=== PATIENT | female | born 1970 | race Caucasian/White ===

== ENCOUNTER → 2017-04-19 | Outpatient (CLI) | payer OTHER ==
[~2017-04-19] MED LIST: ALBU18HF INH; ASCO500T29 PO; BECL8.7A5 INH; CYAN5000 PO; ESCI10TA PO; FLUT9.9S NS; LORA10TA3 PO; MONT10TA9 PO; OMEP20TA62 PO; testosterone cream TD
== END | disposition home or self-care (01) ==
LOC: STAR 15:04
PROVIDERS: ATTEND Surgery
DX: Z02.9 Encounter for administrative examinations, unspecified (principal)

== ENCOUNTER 2017-04-25 07:07 | Inpatient (IN) | payer OTHER ==
[~2017-04-25] VITALS: Ht 162.6 cm; Wt 81.4 kg
[~2017-04-25 07:07] MED LIST changes: +ASCO-90 PO; -ASCO500T29 PO; -BECL8.7A5 INH; +BECL8.7A7 INH; +BUPIVACAINE/PF-EPI 0.5% 1:200K ONE; -CYAN5000 PO; +CYAN50002 PO
[2017-04-25] MEDS ORDERED: SCOPOLAMINE PATCH, 1.5MG PATCH.TD72 TD ONE ×2 (07:32→08:00)
[2017-04-25] MEDS ORDERED: LIDOCAINE 1%, 2ML ONE (07:32)
[2017-04-25] MEDS ORDERED: LACTATED RINGERS 1,000 ML IV SCH (07:39)
[2017-04-25 07:40] VITALS: BP 118/79
[2017-04-25] MEDS ORDERED: LIDOCAINE 1%, 2ML SQ PRN (08:00)
[2017-04-25] MEDS ORDERED: FENTANYL PF 250 MCG/5ML ONE (08:16)
[2017-04-25] MEDS ORDERED: MIDAZOLAM 1 MG/ML, 2ML ONE (08:16)
[2017-04-25] MEDS ORDERED: MEPERIDINE/PF 25MG/0.5ML IVPush PRN (09:00)
[2017-04-25] MEDS ORDERED: METOPROLOL 1 MG/ML, 5ML IV PRN (09:00)
[2017-04-25] MEDS ORDERED: EPHEDRINE 50 MG/ML, 1ML IVPush PRN (09:00)
[2017-04-25] MEDS ORDERED: ACETAMINOPHEN 325 MG TABLET PO PRN (09:00)
[2017-04-25] MEDS ORDERED: hydrALAzine 20 MG/ML, 1ML IV PRN (09:00)
[2017-04-25] MEDS ORDERED: FENTANYL PF 100 MCG/2ML IV PRN (09:00)
[2017-04-25] MEDS ORDERED: LABETALOL 5MG/ML, 20ML IV PRN (09:00)
[2017-04-25] MEDS ORDERED: HYDROmorphone 1 MG/ML, 1ML IV PRN (09:00)
[2017-04-25] MEDS ORDERED: ONDANSETRON 2MG/ML, 2ML IVPush PRN (09:00)
[2017-04-25] MEDS ORDERED: OXYcodone 5 MG/5 ML ORAL.SOL UDC PO PRN (09:00)
[2017-04-25] MEDS ORDERED: ALBUTEROL SULFATE 2.5 MG/3 ML NPPB PRN ×2 (09:00→13:30)
[2017-04-25] MEDS ORDERED: ACETAMINOPHEN 650 MG/20.3 ML UDC ONE (11:30)
[2017-04-25] MEDS ORDERED: OXYcodone 5 MG/5 ML ORAL.SOL UDC ONE (11:30)
[2017-04-25] MEDS ORDERED: ACETAMINOPHEN 325 MG/10.15 ML UDC ONE (11:30)
[2017-04-25] MEDS ORDERED: ONDANSETRON 2MG/ML, 2ML ONE ×2 (11:40→16:30)
[2017-04-25] MEDS ORDERED: FENTANYL PF 100 MCG/2ML ONE (11:40)
[2017-04-25 12:40] VITALS: BP 102/67
[2017-04-25] MEDS: LACTATED RINGERS 1,000 ML IV SCH (16:03)
[2017-04-25] MEDS ORDERED: GLYCOPYRROLATE 0.2MG/1ML ONE (16:30)
[2017-04-25] MEDS ORDERED: ROCURONIUM 10 MG/ML ONE (16:30)
[2017-04-25] MEDS ORDERED: PROPOFOL 10 MG/ML, 50ML ONE (16:30)
[2017-04-25] MEDS ORDERED: NEOSTIGMINE 1 MG/ML, 10ML ONE (16:30)
[2017-04-25] MEDS ORDERED: DEXAMETHASONE 4 MG/ML, 1ML ONE (16:30)
[2017-04-25] MEDS ORDERED: PROPOFOL 10 MG/ML, 20ML ONE (16:30)
[2017-04-25] MEDS ORDERED: CEFOTETAN 2 GM ONE (16:30)
[2017-04-25 17:37] VITALS: BP 113/68
[2017-04-25] MEDS: HYDROmorphone 2MG TABLET PO PRN (18:39)
[2017-04-25] MEDS: ONDANSETRON 2MG/ML, 2ML IVPush PRN (18:50)
[2017-04-25 20:09] VITALS: BP 113/70
[2017-04-25] MEDS: FLUTICASONE NASAL SPRAY 16GM NAS SCH (21:00)
[2017-04-25] MEDS: MONTELUKAST 10 MG TABLET PO SCH (21:04)
[2017-04-25] MEDS: CITALOPRAM 20 MG TABLET PO SCH (21:04)
[2017-04-25] MEDS: HYDROmorphone 2 MG/ML, 1ML IV PRN (21:04)
[2017-04-25 23:38] VITALS: BP 95/59
[2017-04-26] MEDS: ONDANSETRON 2MG/ML, 2ML IVPush PRN ×2 (02:13→17:49)
[2017-04-26] MEDS: HYDROmorphone 2 MG/ML, 1ML IV PRN ×2 (02:13→09:05)
[2017-04-26] MEDS: LACTATED RINGERS 1,000 ML IV SCH ×3 (04:25→17:23)
[2017-04-26 04:30] VITALS: BP 95/52
[2017-04-26] MEDS: HYDROmorphone 2MG TABLET PO PRN ×4 (06:17→20:55)
[2017-04-26 07:12] VITALS: BP 98/57
[2017-04-26] MEDS ORDERED: OMEPRAZOLE 20 MG CAPSULE.DR PO SCH (07:30)
[2017-04-26] MEDS ORDERED: FLUTICASONE FUROATE 200MCG/INH INH SCH (09:00)
[2017-04-26] MEDS ORDERED: LORATADINE 10 MG TABLET PO SCH (09:00)
[2017-04-26 13:05] VITALS: BP 100/52
[2017-04-26] MEDS ORDERED: DIAZEPAM 5 MG TABLET PO PRN (15:00)
[2017-04-26 15:47] LABS: HEMATOCRIT 39.6 % (34.6-47.8); HEMOGLOBIN 13.1 g/dL (11.7-16.4)
[2017-04-26 19:02] VITALS: BP 122/72
[2017-04-26] MEDS: MONTELUKAST 10 MG TABLET PO SCH (21:00)
[2017-04-26] MEDS: CITALOPRAM 20 MG TABLET PO SCH (21:00)
[2017-04-26] MEDS: FLUTICASONE NASAL SPRAY 16GM NAS SCH (21:00)
[2017-04-26] MEDS ORDERED: FENTANYL PF 250 MCG/5ML ONE (21:25)
[2017-04-26] MEDS ORDERED: BUPIVACAINE/PF 0.5% ONE (21:49)
[2017-04-26] MEDS ORDERED: EPINEPHRINE 1 MG/ML, 1ML ONE (21:49)
[2017-04-26] MEDS ORDERED: GLYCOPYRROLATE 0.2MG/1ML ONE (21:58)
[2017-04-26] MEDS ORDERED: PROPOFOL 10 MG/ML, 20ML ONE ×2 (21:58)
[2017-04-26] MEDS ORDERED: SUCCINYLCHOLINE 20 MG/ML, 10ML ONE (21:58)
[2017-04-26] MEDS ORDERED: ONDANSETRON 2MG/ML, 2ML ONE (21:58)
[2017-04-26] MEDS ORDERED: PHENYLEPHRINE 10 MG/ML ONE (21:58)
[2017-04-26] MEDS ORDERED: METOCLOPRAMIDE 5 MG/ML, 2ML ONE (21:58)
[2017-04-26] MEDS ORDERED: CEFOTETAN 2 GM ONE (21:58)
[2017-04-26] MEDS ORDERED: MORPHINE SULFATE 4 MG/ML, 1ML ONE (23:35)
[2017-04-27] MEDS ORDERED: METOCLOPRAMIDE 5 MG/ML, 2ML IV PRN
[2017-04-27] MEDS ORDERED: ALBUTEROL/IPRATROPIUM 2.5MG/0.5MG, 3 ML NPPB PRN
[2017-04-27] MEDS ORDERED: hydrALAzine 20 MG/ML, 1ML IV PRN
[2017-04-27] MEDS ORDERED: LABETALOL 5MG/ML, 20ML IV PRN
[2017-04-27] MEDS ORDERED: ONDANSETRON 2MG/ML, 2ML IVPush PRN
[2017-04-27] MEDS ORDERED: MIDAZOLAM 1 MG/ML, 2ML IV PRN
[2017-04-27] MEDS ORDERED: HYDROmorphone 1 MG/ML, 1ML IV PRN
[2017-04-27] MEDS ORDERED: ACETAMINOPHEN 325 MG TABLET PO PRN
[2017-04-27] MEDS ORDERED: PROMETHAZINE 25 MG/ML, 1ML IV PRN
[2017-04-27] MEDS ORDERED: MEPERIDINE/PF 25MG/0.5ML IVPush PRN
[2017-04-27] MEDS: FENTANYL PF 100 MCG/2ML IV PRN ×4 (00:50→01:28)
[2017-04-27] MEDS: HYDROmorphone PCA 30 MG/30 ML IV PRN ×2 (00:51→09:48)
[2017-04-27 01:44] VITALS: BP 110/72
[2017-04-27] MEDS ORDERED: SODIUM CHLORIDE 0.9%, 500ML IVBOLUS PRN (02:00)
[2017-04-27] MEDS ORDERED: ONDANSETRON 2MG/ML, 2ML IV PRN (02:30)
[2017-04-27] MEDS ORDERED: DIAZEPAM 5 MG/ML, 2ML IVPush PRN (02:30)
[2017-04-27] MEDS: PIPERACILLIN-TAZO-DEXTROSE,ISO 100 ML IV SCH ×3 (03:56→19:59)
[2017-04-27] MEDS: SODIUM CHLORIDE 0.9% 1,000 ML IV SCH ×4 (03:57→17:34)
[2017-04-27 05:26] LABS: HEMATOCRIT 43.5 % (34.6-47.8); HEMOGLOBIN 14.4 g/dL (11.7-16.4); WHITE BLOOD COUNT 15.8 x10^3/uL (3.4-10)
[2017-04-27 07:00] VITALS: BP 122/79
[2017-04-27 09:25] LABS: BLOOD UREA NITROGEN 8 mg/dL (7-18)
[2017-04-27 09:28] LABS: ASPARTATE AMINO TRANSFERASE 506 U/L (15-37)
[2017-04-27] MEDS: FAMOTIDINE 20 MG/2 ML IVPush SCH ×2 (09:40→22:13)
[2017-04-27] MEDS: FLUTICASONE FUROATE 200MCG/INH INH SCH (09:40)
[2017-04-27] MEDS: DIAZEPAM 5 MG/ML, 10ML VIAL IVPush PRN ×2 (09:40→15:49)
[2017-04-27 14:00] VITALS: BP 127/76
[2017-04-27] MEDS ORDERED: ALBUTEROL SULFATE 2.5 MG/3 ML ONE (17:11)
[2017-04-27] MEDS: ALBUTEROL SULFATE 2.5 MG/3 ML NPPB SCH ×2 (17:16→20:21)
[2017-04-27 21:22] VITALS: BP 118/68
[2017-04-28] MEDS: SODIUM CHLORIDE 0.9% 1,000 ML IV SCH ×3 (00:59→15:33)
[2017-04-28] MEDS: PIPERACILLIN-TAZO-DEXTROSE,ISO 100 ML IV SCH ×3 (03:28→21:06)
[2017-04-28 03:29] VITALS: BP 109/70
[2017-04-28] MEDS: ALBUTEROL SULFATE 2.5 MG/3 ML NPPB SCH ×3 (07:15→21:22)
[2017-04-28 08:23] VITALS: BP 103/64
[2017-04-28] MEDS: FAMOTIDINE 20 MG/2 ML IVPush SCH ×2 (08:28→21:06)
[2017-04-28] MEDS: FLUTICASONE FUROATE 200MCG/INH INH SCH ×2 (08:29→08:38)
[2017-04-28 09:04] LABS: HEMATOCRIT 33.4 % (34.6-47.8); WHITE BLOOD COUNT 11.7 x10^3/uL (3.4-10)
[2017-04-28 09:15] LABS: ASPARTATE AMINO TRANSFERASE 151 U/L (15-37); BLOOD UREA NITROGEN 7 mg/dL (7-18)
[2017-04-28] MEDS: DIAZEPAM 5 MG/ML, 10ML VIAL IVPush PRN (10:02)
[2017-04-28 12:00] VITALS: BP 103/67
[2017-04-28] MEDS ORDERED: SODIUM CHLORIDE 0.9% 1,000 ML IV SCH (16:30)
[2017-04-28 20:57] VITALS: BP 108/69
[2017-04-28] MEDS ORDERED: CITALOPRAM 20 MG TABLET PO SCH (21:00)
[2017-04-28] MEDS: MONTELUKAST 10 MG TABLET PO SCH (21:06)
[2017-04-28] MEDS: HYDROmorphone PCA 30 MG/30 ML IV PRN (22:05)
[2017-04-29] MEDS ORDERED: BECL8.7A7 INH (00:09)
[2017-04-29] MEDS: DIAZEPAM 5 MG/ML, 10ML VIAL IVPush PRN ×2 (02:26→22:08)
[2017-04-29 02:31] VITALS: BP 104/66
[2017-04-29] MEDS: PIPERACILLIN-TAZO-DEXTROSE,ISO 100 ML IV SCH ×3 (04:09→19:50)
[2017-04-29 09:30] LABS: HEMATOCRIT 36.7 % (34.6-47.8); HEMOGLOBIN 12.3 g/dL (11.7-16.4); WHITE BLOOD COUNT 13.7 x10^3/uL (3.4-10)
[2017-04-29 09:41] LABS: ASPARTATE AMINO TRANSFERASE 67 U/L (15-37); BLOOD UREA NITROGEN 5 mg/dL (7-18)
[2017-04-29] MEDS: FAMOTIDINE 20 MG/2 ML IVPush SCH ×2 (09:57→19:50)
[2017-04-29] MEDS: LORATADINE 10 MG TABLET PO SCH (09:57)
[2017-04-29] MEDS: ALBUTEROL SULFATE 2.5 MG/3 ML NPPB SCH ×3 (10:00→20:31)
[2017-04-29] MEDS: QVAR 80MCG HOMEINH SCH ×2 (10:42→20:18)
[2017-04-29] MEDS: POTASSIUM CHLORIDE 40 MEQ in D5%-0.2% NACL 1,000 ML IV SCH (12:57)
[2017-04-29] MEDS: METOCLOPRAMIDE 10MG TABLET PO SCH ×3 (13:15→20:17)
[2017-04-29] MEDS: ENOXAPARIN 40 MG/0.4 ML SQ SCH (13:15)
[2017-04-29 14:43] VITALS: BP 110/71
[2017-04-29] MEDS ORDERED: SODIUM CHLORIDE 0.9% 1,000 ML IV SCH (16:30)
[2017-04-29 19:00] VITALS: BP 93/60
[2017-04-29] MEDS ORDERED: SODIUM CHLORIDE 0.9%, 500ML IVBOLUS PRN (19:30)
[2017-04-29] MEDS: MONTELUKAST 10 MG TABLET PO SCH (19:51)
[2017-04-29] MEDS: LEXAPRO 10MG HOMEMEDPO SCH (20:17)
[2017-04-29] MEDS: HYDROmorphone 1 MG/ML, 1ML IV PRN (20:28)
[2017-04-29] MEDS ORDERED: LEXAPRO 10MG HOMEMEDPO SCH (21:00)
[2017-04-29 22:36] VITALS: BP 114/81
[2017-04-30] MEDS: ONDANSETRON 2MG/ML, 2ML IV PRN ×2 (00:45→15:56)
[2017-04-30] MEDS: HYDROmorphone 1 MG/ML, 1ML IV PRN ×2 (00:45→05:04)
[2017-04-30] MEDS: METOCLOPRAMIDE 10MG TABLET PO SCH ×2 (00:46→05:03)
[2017-04-30] MEDS: PIPERACILLIN-TAZO-DEXTROSE,ISO 100 ML IV SCH ×3 (03:29→20:10)
[2017-04-30 04:56] LABS: HEMATOCRIT 38.3 % (34.6-47.8); HEMOGLOBIN 12.7 g/dL (11.7-16.4)
[2017-04-30 05:07] LABS: ASPARTATE AMINO TRANSFERASE 43 U/L (15-37); BLOOD UREA NITROGEN 5 mg/dL (7-18)
[2017-04-30 05:08] VITALS: BP 112/71
[2017-04-30] MEDS ORDERED: FUROSEMIDE 20 MG/2 ML IV ONE (08:00)
[2017-04-30 08:01] VITALS: BP 111/74
[2017-04-30] MEDS: POTASSIUM CHLORIDE 40 MEQ in D5%-0.2% NACL 1,000 ML IV SCH (09:30)
[2017-04-30] MEDS: LORATADINE 10 MG TABLET PO SCH (09:36)
[2017-04-30] MEDS: FAMOTIDINE 20 MG/2 ML IVPush SCH ×2 (09:37→20:34)
[2017-04-30] MEDS: KETOROLAC 30 MG/1 ML IVPush PRN ×3 (09:37→21:52)
[2017-04-30] MEDS: ALBUTEROL SULFATE 2.5 MG/3 ML NPPB SCH ×4 (09:50→20:51)
[2017-04-30 09:54] LABS: BLOOD UREA NITROGEN 4 mg/dL (7-18)
[2017-04-30 09:57] LABS: ASPARTATE AMINO TRANSFERASE 45 U/L (15-37)
[2017-04-30] MEDS: QVAR 80MCG HOMEINH SCH ×2 (10:54→20:36)
[2017-04-30] MEDS: METOCLOPRAMIDE 5 MG/ML, 2ML IV SCH ×2 (12:21→17:34)
[2017-04-30] MEDS: ENOXAPARIN 40 MG/0.4 ML SQ SCH (12:22)
[2017-04-30 13:35] VITALS: BP 117/75
[2017-04-30 20:19] VITALS: BP 123/76
[2017-04-30] MEDS: LEXAPRO 10MG HOMEMEDPO SCH (20:34)
[2017-04-30] MEDS: MONTELUKAST 10 MG TABLET PO SCH (20:34)
[2017-05-01] MEDS: METOCLOPRAMIDE 5 MG/ML, 2ML IV SCH ×5 (00:34→17:03)
[2017-05-01] MEDS: POTASSIUM CHLORIDE 40 MEQ in D5%-0.2% NACL 1,000 ML IV SCH (04:28)
[2017-05-01] MEDS: PIPERACILLIN-TAZO-DEXTROSE,ISO 100 ML IV SCH ×3 (04:29→20:13)
[2017-05-01] MEDS: KETOROLAC 30 MG/1 ML IVPush PRN ×3 (04:31→18:01)
[2017-05-01 04:38] VITALS: BP 115/74
[2017-05-01 05:52] LABS: HEMATOCRIT 33.1 % (34.6-47.8); HEMOGLOBIN 11.1 g/dL (11.7-16.4); WHITE BLOOD COUNT 11.4 x10^3/uL (3.4-10)
[2017-05-01 06:14] LABS: ASPARTATE AMINO TRANSFERASE 41 U/L (15-37); BLOOD UREA NITROGEN 4 mg/dL (7-18)
[2017-05-01 06:52] VITALS: BP 117/79
[2017-05-01] MEDS: ALBUTEROL SULFATE 2.5 MG/3 ML NPPB SCH ×3 (08:40→20:48)
[2017-05-01] MEDS: LORATADINE 10 MG TABLET PO SCH (08:43)
[2017-05-01] MEDS: FAMOTIDINE 20 MG/2 ML IVPush SCH ×2 (08:43→21:59)
[2017-05-01] MEDS: QVAR 80MCG HOMEINH SCH ×2 (08:44→21:00)
[2017-05-01] MEDS: ENOXAPARIN 40 MG/0.4 ML SQ SCH (11:58)
[2017-05-01 14:20] VITALS: BP 120/75
[2017-05-01 19:18] VITALS: BP 120/74
[2017-05-01] MEDS: LEXAPRO 10MG HOMEMEDPO SCH (21:00)
[2017-05-01] MEDS: MONTELUKAST 10 MG TABLET PO SCH (21:59)
[2017-05-01] MEDS: DIAZEPAM 5 MG TABLET PO PRN (23:07)
[2017-05-02] MEDS: POTASSIUM CHLORIDE 40 MEQ in D5%-0.2% NACL 1,000 ML IV SCH (00:33)
[2017-05-02] MEDS: KETOROLAC 30 MG/1 ML IVPush PRN ×4 (00:33→22:11)
[2017-05-02 03:02] VITALS: BP 121/75
[2017-05-02 05:23] LABS: HEMATOCRIT 32.6 % (34.6-47.8); HEMOGLOBIN 10.9 g/dL (11.7-16.4); WHITE BLOOD COUNT 13.2 x10^3/uL (3.4-10)
[2017-05-02 05:33] LABS: BLOOD UREA NITROGEN 4 mg/dL (7-18)
[2017-05-02 05:36] LABS: ASPARTATE AMINO TRANSFERASE 62 U/L (15-37)
[2017-05-02] MEDS: METOCLOPRAMIDE 5 MG/ML, 2ML IV SCH ×2 (06:00)
[2017-05-02 06:45] VITALS: BP 121/77
[2017-05-02] MEDS ORDERED: POTASSIUM CHLORIDE 40 MEQ in D5%-0.2% NACL 1,000 ML IV SCH (08:07)
[2017-05-02] MEDS: QVAR 80MCG HOMEINH SCH ×2 (09:00→20:38)
[2017-05-02] MEDS: LORATADINE 10 MG TABLET PO SCH (09:43)
[2017-05-02] MEDS: FAMOTIDINE 20 MG/2 ML IVPush SCH ×2 (09:44→20:37)
[2017-05-02] MEDS: ALBUTEROL SULFATE 2.5 MG/3 ML NPPB SCH ×3 (09:45→20:04)
[2017-05-02 12:25] VITALS: BP 116/76
[2017-05-02] MEDS: ENOXAPARIN 40 MG/0.4 ML SQ SCH (13:26)
[2017-05-02 19:55] VITALS: BP 129/68
[2017-05-02] MEDS: MONTELUKAST 10 MG TABLET PO SCH (20:37)
[2017-05-02] MEDS: LEXAPRO 10MG HOMEMEDPO SCH (20:38)
[2017-05-02] MEDS: DIAZEPAM 5 MG TABLET PO PRN (22:53)
[2017-05-03 03:48] VITALS: BP 124/82
[2017-05-03] MEDS: KETOROLAC 30 MG/1 ML IVPush PRN (03:58)
[2017-05-03 06:01] LABS: HEMATOCRIT 33.9 % (34.6-47.8); HEMOGLOBIN 11.3 g/dL (11.7-16.4); WHITE BLOOD COUNT 13.1 x10^3/uL (3.4-10)
[2017-05-03 06:11] LABS: BLOOD UREA NITROGEN 6 mg/dL (7-18)
[2017-05-03 08:05] VITALS: BP 120/77
[2017-05-03] MEDS: ALBUTEROL SULFATE 2.5 MG/3 ML NPPB SCH ×2 (08:36→19:53)
[2017-05-03] MEDS: QVAR 80MCG HOMEINH SCH ×2 (09:22→21:00)
[2017-05-03] MEDS: LORATADINE 10 MG TABLET PO SCH (09:22)
[2017-05-03] MEDS: FUROSEMIDE 20 MG TABLET PO SCH (09:22)
[2017-05-03] MEDS: FAMOTIDINE 20 MG/2 ML IVPush SCH ×2 (09:23→21:00)
[2017-05-03] MEDS: MELOXICAM 15 MG TABLET PO SCH (10:19)
[2017-05-03] MEDS: K-LYTE 25 MEQ TABLET.EFF PO SCH ×3 (10:19→21:22)
[2017-05-03] MEDS: ENOXAPARIN 40 MG/0.4 ML SQ SCH (13:34)
[2017-05-03 14:12] VITALS: BP 115/76
[2017-05-03] MEDS: LACTOBACILLUS CHEW TABLET PO SCH (16:28)
[2017-05-03 19:59] VITALS: BP 113/73
[2017-05-03] MEDS: LEXAPRO 10MG HOMEMEDPO SCH (21:00)
[2017-05-03] MEDS: MONTELUKAST 10 MG TABLET PO SCH (21:22)
[2017-05-04 02:06] VITALS: BP 108/71
[2017-05-04] MEDS ORDERED: FAMOTIDINE 20 MG TABLET PO PRN ×2 (08:30→20:30)
[2017-05-04] MEDS ORDERED: FUROSEMIDE 40 MG TABLET PO ONE (08:30)
[2017-05-04 08:40] VITALS: BP 112/73
[2017-05-04] MEDS: FAMOTIDINE 20 MG/2 ML IVPush SCH (10:27)
[2017-05-04] MEDS: LORATADINE 10 MG TABLET PO SCH (10:28)
[2017-05-04] MEDS: QVAR 80MCG HOMEINH SCH ×2 (10:28→20:48)
[2017-05-04] MEDS: FUROSEMIDE 20 MG TABLET PO SCH (10:33)
[2017-05-04] MEDS: MELOXICAM 15 MG TABLET PO SCH (10:33)
[2017-05-04] MEDS: ALBUTEROL SULFATE 2.5 MG/3 ML NPPB SCH ×2 (10:35→20:45)
[2017-05-04] MEDS: POTASSIUM CHLORIDE 20 MEQ TAB.ER.PRT PO SCH ×2 (13:00→17:35)
[2017-05-04] MEDS: ENOXAPARIN 40 MG/0.4 ML SQ SCH (13:03)
[2017-05-04 14:20] VITALS: BP 113/69
[2017-05-04] MEDS: LACTOBACILLUS CHEW TABLET PO SCH (17:35)
[2017-05-04] MEDS: LEXAPRO 10MG HOMEMEDPO SCH (20:48)
[2017-05-04] MEDS: MONTELUKAST 10 MG TABLET PO SCH (20:48)
[2017-05-04 21:25] VITALS: BP 107/70
[2017-05-05 03:16] VITALS: BP 95/60
[2017-05-05 05:53] LABS: HEMOGLOBIN 10.6 g/dL (11.7-16.4); WHITE BLOOD COUNT 13.6 x10^3/uL (3.4-10)
[2017-05-05 06:07] LABS: BLOOD UREA NITROGEN 5 mg/dL (7-18)
[2017-05-05 07:50] VITALS: BP 104/68
[2017-05-05] MEDS: ALBUTEROL SULFATE 2.5 MG/3 ML NPPB SCH ×2 (08:25→19:46)
[2017-05-05] MEDS: FUROSEMIDE 20 MG TABLET PO SCH (08:41)
[2017-05-05] MEDS: FAMOTIDINE 20 MG TABLET PO SCH ×2 (08:41→18:08)
[2017-05-05] MEDS: POTASSIUM CHLORIDE 20 MEQ TAB.ER.PRT PO SCH ×3 (08:41→18:08)
[2017-05-05] MEDS: MELOXICAM 15 MG TABLET PO SCH (08:41)
[2017-05-05] MEDS: LORATADINE 10 MG TABLET PO SCH (08:41)
[2017-05-05] MEDS: QVAR 80MCG HOMEINH SCH ×2 (08:41→21:00)
[2017-05-05] MEDS ORDERED: FUROSEMIDE 40 MG TABLET PO ONE (10:00)
[2017-05-05 12:29] VITALS: BP 112/71
[2017-05-05] MEDS ORDERED: AMOXICILLIN/CLAV 500-125MG TABLET PO SCH (16:00)
[2017-05-05] MEDS: ENOXAPARIN 40 MG/0.4 ML SQ SCH (17:05)
[2017-05-05] MEDS ORDERED: OMNIPAQUE 350 MG/ML, 100ML BOTTLE ONE (17:41)
[2017-05-05] MEDS: LACTOBACILLUS CHEW TABLET PO SCH (18:09)
[2017-05-05 19:01] VITALS: BP 98/66
[2017-05-05] MEDS ORDERED: PHARMACOKINETIC CONSULTATION MC ONE (19:30)
[2017-05-05] MEDS ORDERED: PHARMACOKINETIC MONITORING MC PRN (19:30)
[2017-05-05] MEDS: PIPERACILLIN/TAZO/PMX 4.5GM 100 ML IV SCH (20:48)
[2017-05-05] MEDS ORDERED: VANCOMYCIN PER PHARMACY MC PRN (21:00)
[2017-05-05] MEDS: LEXAPRO 10MG HOMEMEDPO SCH (21:00)
[2017-05-05] MEDS: MONTELUKAST 10 MG TABLET PO SCH (21:06)
[2017-05-05] MEDS: VANCOMYCIN 1,700 MG in SODIUM CHLORIDE 0.9% 250 ML IV SCH (22:11)
[2017-05-06 00:46] VITALS: BP 95/62
[2017-05-06 00:47] VITALS: BP 113/67
[2017-05-06] MEDS: PIPERACILLIN/TAZO/PMX 4.5GM 100 ML IV SCH ×4 (02:10→20:44)
[2017-05-06 05:28] LABS: HEMATOCRIT 33.3 % (34.6-47.8); HEMOGLOBIN 11.1 g/dL (11.7-16.4); WHITE BLOOD COUNT 12.1 x10^3/uL (3.4-10)
[2017-05-06 05:41] LABS: BLOOD UREA NITROGEN 5 mg/dL (7-18)
[2017-05-06 05:47] LABS: ASPARTATE AMINO TRANSFERASE 35 U/L (15-37)
[2017-05-06 07:30] VITALS: BP 103/68
[2017-05-06] MEDS: ALBUTEROL SULFATE 2.5 MG/3 ML NPPB SCH ×2 (08:00→19:06)
[2017-05-06] MEDS: POTASSIUM CHLORIDE 20 MEQ TAB.ER.PRT PO SCH ×3 (09:23→18:04)
[2017-05-06] MEDS: LORATADINE 10 MG TABLET PO SCH (09:23)
[2017-05-06] MEDS: FUROSEMIDE 20 MG TABLET PO SCH (09:23)
[2017-05-06] MEDS: QVAR 80MCG HOMEINH SCH ×2 (09:23→21:00)
[2017-05-06] MEDS: FAMOTIDINE 20 MG TABLET PO SCH ×2 (09:23→19:19)
[2017-05-06] MEDS: MELOXICAM 15 MG TABLET PO SCH (09:23)
[2017-05-06] MEDS: VANCOMYCIN 1,700 MG in SODIUM CHLORIDE 0.9% 250 ML IV SCH ×2 (10:08→22:04)
[2017-05-06] MEDS: ENOXAPARIN 40 MG/0.4 ML SQ SCH (13:29)
[2017-05-06] MEDS: FLUCONAZOLE 100 MG TABLET PO SCH (13:29)
[2017-05-06 13:35] VITALS: BP 100/65
[2017-05-06] MEDS: LACTOBACILLUS CHEW TABLET PO SCH (18:04)
[2017-05-06 19:27] VITALS: BP 94/62
[2017-05-06] MEDS: LEXAPRO 10MG HOMEMEDPO SCH (21:00)
[2017-05-06] MEDS: MONTELUKAST 10 MG TABLET PO SCH (22:04)
[2017-05-07] MEDS: PIPERACILLIN/TAZO/PMX 4.5GM 100 ML IV SCH ×4 (02:53→20:31)
[2017-05-07 03:05] VITALS: BP 96/63
[2017-05-07] MEDS: FLUCONAZOLE 100 MG TABLET PO SCH (08:48)
[2017-05-07] MEDS: FAMOTIDINE 20 MG TABLET PO SCH ×2 (08:49→17:02)
[2017-05-07] MEDS: LORATADINE 10 MG TABLET PO SCH (08:49)
[2017-05-07] MEDS: POTASSIUM CHLORIDE 20 MEQ TAB.ER.PRT PO SCH ×3 (08:49→17:02)
[2017-05-07] MEDS: FUROSEMIDE 20 MG TABLET PO SCH (08:49)
[2017-05-07] MEDS: MELOXICAM 15 MG TABLET PO SCH (08:51)
[2017-05-07] MEDS: QVAR 80MCG HOMEINH SCH ×2 (08:52→20:32)
[2017-05-07] MEDS: ALBUTEROL SULFATE 2.5 MG/3 ML NPPB SCH ×2 (09:00→21:25)
[2017-05-07 09:13] VITALS: BP 102/66
[2017-05-07 09:36] LABS: HEMATOCRIT 37.2 % (34.6-47.8); HEMOGLOBIN 12.1 g/dL (11.7-16.4)
[2017-05-07] MEDS: VANCOMYCIN 1,700 MG in SODIUM CHLORIDE 0.9% 250 ML IV SCH ×2 (10:00→22:02)
[2017-05-07] MEDS ORDERED: MAGNESIUM HYDROXIDE 8%, 30ML UDC PO ONE (11:30)
[2017-05-07 12:41] VITALS: BP 105/70
[2017-05-07] MEDS: ENOXAPARIN 40 MG/0.4 ML SQ SCH (15:01)
[2017-05-07] MEDS: LACTOBACILLUS CHEW TABLET PO SCH (17:02)
[2017-05-07 19:05] VITALS: BP 118/74
[2017-05-07] MEDS: MONTELUKAST 10 MG TABLET PO SCH (20:31)
[2017-05-07] MEDS: LEXAPRO 10MG HOMEMEDPO SCH (20:33)
[2017-05-08 02:17] VITALS: BP 103/64
[2017-05-08] MEDS: PIPERACILLIN/TAZO/PMX 4.5GM 100 ML IV SCH ×4 (02:30→20:14)
[2017-05-08] MEDS: ALBUTEROL SULFATE 2.5 MG/3 ML NPPB SCH ×2 (07:54→20:58)
[2017-05-08 08:30] VITALS: BP 113/75
[2017-05-08] MEDS: FAMOTIDINE 20 MG TABLET PO SCH ×2 (08:44→16:48)
[2017-05-08] MEDS: FLUCONAZOLE 100 MG TABLET PO SCH (08:44)
[2017-05-08] MEDS: POTASSIUM CHLORIDE 20 MEQ TAB.ER.PRT PO SCH ×3 (08:44→16:48)
[2017-05-08] MEDS: MELOXICAM 15 MG TABLET PO SCH (08:44)
[2017-05-08] MEDS: LORATADINE 10 MG TABLET PO SCH (08:44)
[2017-05-08] MEDS: QVAR 80MCG HOMEINH SCH ×2 (08:50→20:14)
[2017-05-08 09:03] LABS: HEMATOCRIT 35.4 % (34.6-47.8); HEMOGLOBIN 11.7 g/dL (11.7-16.4); WHITE BLOOD COUNT 11.9 x10^3/uL (3.4-10)
[2017-05-08] MEDS: VANCOMYCIN 1,700 MG in SODIUM CHLORIDE 0.9% 250 ML IV SCH ×2 (10:10→22:26)
[2017-05-08] MEDS ORDERED: MAGNESIUM HYDROXIDE 8%, 30ML UDC PO PRN (11:25)
[2017-05-08] MEDS: ENOXAPARIN 40 MG/0.4 ML SQ SCH (11:47)
[2017-05-08 14:32] VITALS: BP 112/77
[2017-05-08] MEDS: LACTOBACILLUS CHEW TABLET PO SCH (16:48)
[2017-05-08] MEDS: LEXAPRO 10MG HOMEMEDPO SCH (20:14)
[2017-05-08] MEDS: MONTELUKAST 10 MG TABLET PO SCH (20:15)
[2017-05-08 20:32] VITALS: BP 116/73
[2017-05-09 00:13] VITALS: BP 93/59
[2017-05-09] MEDS: PIPERACILLIN/TAZO/PMX 4.5GM 100 ML IV SCH ×2 (02:32→07:53)
[2017-05-09] MEDS: ALBUTEROL SULFATE 2.5 MG/3 ML NPPB SCH ×3 (06:58→20:27)
[2017-05-09] MEDS: FLUCONAZOLE 100 MG TABLET PO SCH (07:52)
[2017-05-09] MEDS: FAMOTIDINE 20 MG TABLET PO SCH ×2 (07:53→18:39)
[2017-05-09] MEDS: POTASSIUM CHLORIDE 20 MEQ TAB.ER.PRT PO SCH (07:53)
[2017-05-09] MEDS: MELOXICAM 15 MG TABLET PO SCH (07:53)
[2017-05-09] MEDS: LORATADINE 10 MG TABLET PO SCH (07:53)
[2017-05-09] MEDS: QVAR 80MCG HOMEINH SCH ×2 (07:53→21:34)
[2017-05-09 08:12] VITALS: BP 100/67
[2017-05-09] MEDS ORDERED: MAGNESIUM HYDROXIDE 8%, 30ML UDC PO PRN (09:11)
[2017-05-09] MEDS: VANCOMYCIN 1,700 MG in SODIUM CHLORIDE 0.9% 250 ML IV SCH (09:56)
[2017-05-09] MEDS: ENOXAPARIN 40 MG/0.4 ML SQ SCH (13:32)
[2017-05-09 14:25] VITALS: BP 117/73
[2017-05-09] MEDS: AMOXICILLIN/CLAV 500-125MG TABLET PO SCH ×2 (16:12→21:36)
[2017-05-09] MEDS: LACTOBACILLUS CHEW TABLET PO SCH (16:12)
[2017-05-09 20:16] VITALS: BP 104/69
[2017-05-09] MEDS: LEXAPRO 10MG HOMEMEDPO SCH (21:35)
[2017-05-09] MEDS: MONTELUKAST 10 MG TABLET PO SCH (21:36)
[2017-05-10 03:38] VITALS: BP 102/65
[2017-05-10 06:00] LABS: HEMATOCRIT 34.8 % (34.6-47.8); HEMOGLOBIN 11.4 g/dL (11.7-16.4); WHITE BLOOD COUNT 12.1 x10^3/uL (3.4-10)
[2017-05-10 08:44] VITALS: BP 117/76
[2017-05-10] MEDS: QVAR 80MCG HOMEINH SCH ×2 (09:00→22:17)
[2017-05-10] MEDS: MELOXICAM 15 MG TABLET PO SCH (09:00)
[2017-05-10] MEDS ORDERED: LINEZOLID 600 MG TABLET PO SCH (09:00)
[2017-05-10] MEDS: CIPROFLOXACIN 250 MG TABLET PO SCH ×2 (09:01→20:22)
[2017-05-10] MEDS: FAMOTIDINE 20 MG TABLET PO SCH (09:01)
[2017-05-10] MEDS: LORATADINE 10 MG TABLET PO SCH (09:02)
[2017-05-10] MEDS: FLUCONAZOLE 100 MG TABLET PO SCH (09:02)
[2017-05-10] MEDS: HEPARIN 5,000 UNITS/ML, 1ML SQ SCH ×2 (09:02→22:18)
[2017-05-10 09:11] LABS: BLOOD UREA NITROGEN 9 mg/dL (7-18)
[2017-05-10] MEDS: ALBUTEROL SULFATE 2.5 MG/3 ML NPPB SCH (09:30)
[2017-05-10] MEDS ORDERED: ENOXAPARIN 30 MG/0.3 ML SQ SCH (13:00)
[2017-05-10 14:20] VITALS: BP 112/72
[2017-05-10] MEDS ORDERED: ALBUTEROL SULFATE 2.5 MG/3 ML NPPB PRN (16:00)
[2017-05-10] MEDS: LACTOBACILLUS CHEW TABLET PO SCH (17:12)
[2017-05-10] MEDS: NYSTATIN 500,000 UNITS/5 ML UDC PO SCH ×2 (17:12→22:17)
[2017-05-10 19:02] VITALS: BP 109/72
[2017-05-10] MEDS ORDERED: ACETAMINOPHEN 325 MG TABLET PO PRN (21:30)
[2017-05-10] MEDS: LEXAPRO 10MG HOMEMEDPO SCH (22:17)
[2017-05-10] MEDS: MONTELUKAST 10 MG TABLET PO SCH (22:18)
[2017-05-10] MEDS: OXYcodone IR 5MG TABLET PO PRN (22:18)
[2017-05-11 02:04] VITALS: BP 116/76
[2017-05-11] MEDS: OXYcodone IR 5MG TABLET PO PRN ×4 (04:40→21:26)
[2017-05-11 05:25] LABS: BLOOD UREA NITROGEN 13 mg/dL (7-18)
[2017-05-11 05:27] LABS: HEMATOCRIT 35.5 % (34.6-47.8); HEMOGLOBIN 11.6 g/dL (11.7-16.4); WHITE BLOOD COUNT 13.6 x10^3/uL (3.4-10)
[2017-05-11] MEDS: NYSTATIN 500,000 UNITS/5 ML UDC PO SCH ×4 (06:11→21:00)
[2017-05-11 08:01] VITALS: BP 100/68
[2017-05-11] MEDS: MELOXICAM 15 MG TABLET PO SCH (09:11)
[2017-05-11] MEDS: HEPARIN 5,000 UNITS/ML, 1ML SQ SCH ×2 (09:11→21:09)
[2017-05-11] MEDS: LORATADINE 10 MG TABLET PO SCH (09:14)
[2017-05-11] MEDS: CIPROFLOXACIN 250 MG TABLET PO SCH ×2 (09:14→21:09)
[2017-05-11] MEDS: FAMOTIDINE 20 MG TABLET PO SCH (09:14)
[2017-05-11] MEDS: FLUCONAZOLE 100 MG TABLET PO SCH (09:14)
[2017-05-11] MEDS: QVAR 80MCG HOMEINH SCH ×2 (09:14→21:00)
[2017-05-11 11:14] LABS: POTASSIUM,URINE RANDOM 28 mmol/L
[2017-05-11 11:40] LABS: FERRITIN 382.6 ng/mL (8-252)
[2017-05-11 13:26] VITALS: BP 102/64
[2017-05-11] MEDS: LACTOBACILLUS CHEW TABLET PO SCH (16:34)
[2017-05-11] MEDS: LEXAPRO 10MG HOMEMEDPO SCH (21:00)
[2017-05-11] MEDS: MONTELUKAST 10 MG TABLET PO SCH (21:09)
[2017-05-12] MEDS: OXYcodone IR 5MG TABLET PO PRN ×2 (02:16→09:04)
[2017-05-12 02:18] VITALS: BP 107/70
[2017-05-12 05:34] LABS: HEMATOCRIT 35.3 % (34.6-47.8); HEMOGLOBIN 11.7 g/dL (11.7-16.4); WHITE BLOOD COUNT 11.8 x10^3/uL (3.4-10)
[2017-05-12 05:52] LABS: ASPARTATE AMINO TRANSFERASE 33 U/L (15-37); BLOOD UREA NITROGEN 17 mg/dL (7-18)
[2017-05-12] MEDS: NYSTATIN 500,000 UNITS/5 ML UDC PO SCH ×2 (06:00→11:00)
[2017-05-12 06:56] VITALS: BP 102/68
[2017-05-12] MEDS: HEPARIN 5,000 UNITS/ML, 1ML SQ SCH (09:05)
[2017-05-12] MEDS: CIPROFLOXACIN 250 MG TABLET PO SCH (09:05)
[2017-05-12] MEDS: FLUCONAZOLE 100 MG TABLET PO SCH (09:05)
[2017-05-12] MEDS: FAMOTIDINE 20 MG TABLET PO SCH (09:06)
[2017-05-12] MEDS: LORATADINE 10 MG TABLET PO SCH (09:06)
[2017-05-12] MEDS: QVAR 80MCG HOMEINH SCH (09:07)
[2017-05-12 13:00] VITALS: BP 106/72
[2017-05-12] MEDS ORDERED: OXYC5CAP2 PO (13:01)
[2017-05-12] MEDS ORDERED: FLUC200T PO (13:02)
[2017-05-12] MEDS ORDERED: CIPR250T27 PO (13:02)
[2017-05-12] MEDS ORDERED: FAMO-79 PO (13:03)
== END 2017-05-12 14:20 | disposition home health service (06) | DRG 326 ==
LOC: OUT 07:07 → 4NOR 12:44 → OUT 13:41 → OBSVTOIN 04-26 14:23
PROVIDERS: ADMIT Surgery; ATTEND Surgery
PROC: 0BQR4ZZ (ICD-10-PCS; 2017-04-26)
PROC: 8E0W4CZ Robotic Assisted Procedure of Trunk Region, Percutaneous Endoscopic Approach (ICD-10-PCS; 2017-04-26)
PROC: 0DV44ZZ Restriction of Esophagogastric Junction, Percutaneous Endoscopic Approach (ICD-10-PCS; principal; 2017-04-26 19:00)
PROC: 0BQS4ZZ (ICD-10-PCS; 2017-04-26 19:00)
PROC: 0DQA0ZZ Repair Jejunum, Open Approach (ICD-10-PCS; 2017-04-27)
PROC: 0DJW4ZZ Inspection of Peritoneum, Percutaneous Endoscopic Approach (ICD-10-PCS; 2017-04-27)
DX: K21.9 Gastro-esophageal reflux disease without esophagitis (principal); K63.1 Perforation of intestine (nontraumatic); J96.00 Acute respiratory failure, unspecified whether with hypoxia or hypercapnia; A41.9 Sepsis, unspecified organism; K65.9 Peritonitis, unspecified; J18.9 Pneumonia, unspecified organism; N17.9 Acute kidney failure, unspecified; E46 Unspecified protein-calorie malnutrition; T81.4XXA Infection following a procedure, initial encounter; L03.316 Cellulitis of umbilicus; J45.901 Unspecified asthma with (acute) exacerbation; K44.9 Diaphragmatic hernia without obstruction or gangrene; B37.9 Candidiasis, unspecified; E83.51 Hypocalcemia; D64.9 Anemia, unspecified; E87.6 Hypokalemia; Z91.018 Allergy to other foods; Z68.30 Body mass index [BMI] 30.0-30.9, adult; Z53.31 Laparoscopic surgical procedure converted to open procedure
CPT/HCPCS: 36415; 71010; 71020; 71275; 74177; 74220; 80048; 80053; 80202; 81003; 82306; 82436; 82565; 82728; 83540; 83550; 83735; 84100; 84133; 84300; 84550; 85025; 87070; 87106; 87205; 87324; 94640; G0378; J0171; J1100; J1170; J1644; J1650; J1885; J2250; J2405; J2543; J2704; J2710; J3010; J3360; J3370; J3480; J3490; J7613; Q9967; J0330; J1940; J2370; J2765; J7030; J7050; J7120; S0028; S0074

== ENCOUNTER 2017-07-03 22:52 | Emergency (ER) | payer OTHER ==
[~2017-07-03] VITALS: Ht 162.6 cm; Wt 73.7 kg
[~2017-07-03 22:52] MED LIST changes: -BUPIVACAINE/PF-EPI 0.5% 1:200K ONE; +CIPR250T27 PO; +FAMO-79 PO; +FLUC200T PO; +OXYC5CAP2 PO
[2017-07-03 23:26] LABS: PATH.CAST-FLAG NOT PRESENT; SPERM-FLAG NOT PRESENT; SRC-FLAG NOT PRESENT; XTAL-FLAG NOT PRESENT; YLC-FLAG NOT PRESENT
[2017-07-03 23:30] VITALS: BP 116/68
[2017-07-03] MEDS ORDERED: HYDROmorphone 1 MG/ML, 1ML ONE (23:50)
[2017-07-03] MEDS ORDERED: ONDANSETRON 2MG/ML, 2ML ONE (23:50)
[2017-07-03] MEDS ORDERED: FAMOTIDINE 20 MG/2 ML ONE (23:51)
[2017-07-04] MEDS ORDERED: ONDANSETRON 2MG/ML, 2ML IVPush ONE
[2017-07-04] MEDS ORDERED: DICYCLOMINE 10 MG/ML, 2ML IM ONE
[2017-07-04] MEDS ORDERED: FAMOTIDINE 20 MG/2 ML IVP ONE
[2017-07-04] MEDS ORDERED: SODIUM CHLORIDE 0.9% 1,000ML IVBOLUS ONE
[2017-07-04] MEDS ORDERED: HYDROmorphone 1 MG/ML, 1ML IVPush PRN
[2017-07-04 08:17] LABS: ASPARTATE AMINO TRANSFERASE 36 U/L (15-37); BLOOD UREA NITROGEN 11 mg/dL (7-18)
[2017-07-04 13:41] LABS: HEMATOCRIT 40.6 % (34.6-47.8); HEMOGLOBIN 13.4 g/dL (11.7-16.4); WHITE BLOOD COUNT 8.8 x10^3/uL (3.4-10)
== END 2017-07-04 02:20 | disposition home or self-care (01) ==
LOC: ED 23:39
DX: R10.84 Generalized abdominal pain (principal); Z91.018 Allergy to other foods
CPT/HCPCS: 36415; 74020; 80053; 81001; 83690; 84703; 85025; 96360; 99285; J7030